=== PATIENT | female | born 1955 | race Hispanic/Latino ===

== ENCOUNTER 2022-11-20 12:00 | Day surgery (SDC) | payer OTHER ==
[2022-11-15 15:25] LABS: Protime INR 1.03
[2022-11-15 15:26] LABS: Absolute Lymphocytes (CBC) 1.7 K/uL (0.7-4.9); Hematocrit 38.9 % (36.0-45.0); Lymphocytes % 23.5 % (15.3-44.8); MCV 85.7 fL (80-100); MPV 8.8 fL (7.6-11.3); RBC Red Blood Cell Count 4.55 M/uL (3.86-4.86)
--- NOTE | 2022-11-15 16:08 | RAD REPORT ---
EXAM DESCRIPTION: RAD - Chest Pa And Lat (2 Views) - 11/15/2022 3:47 pm CLINICAL HISTORY: Pre op pending heart catheterization COMPARISON: No comparisons FINDINGS: Lines: None. Lungs: No evidence of edema or pneumonia. Pleural: No significant pleural effusions or pneumothorax. Cardiac: Cardiomegaly. Mediastinum: Within normal limits. Bones: No acute fractures. Other: None IMPRESSION: No acute cardiopulmonary disease.
--- NOTE | 2022-11-16 10:49 | EKG ---
Test Date: 2022-11-15 Test Time: 14:56:00 Car Detailer: VIRAJ MEASUREMENT RESULTS: Intervals: Rate: 68 VT: 196 QRSD: 74 QT: 402 QTc: [address]: P: 39 VT: 196 QRS: 37 T: 39 INTERPRETIVE STATEMENTS: Normal sinus rhythm Cannot rule out Anterior infarct, age undetermined Abnormal ECG Compared to ECG 08/15/2022 10:36:34 No significant changes Electronically Signed On 11-16-22 10:46:40 [employer] by Emiliano Espinal
[2022-11-20] MEDS ORDERED: NA CHLORIDE 0.9% 500 ML ONE (12:12)
[2022-11-20] MEDS ORDERED: HEPA 1000U/500MLS 2,000 UNIT/1,000 ML BAG IV ONE (13:23)
[2022-11-20] MEDS ORDERED: HEPARIN 5000 UNIT/ML 1 ML VIAL ONE (13:24)
[2022-11-20] MEDS ORDERED: VERAPAMIL HCL 10 MG/4 ML VIAL IV ONE (13:24)
[2022-11-20] MEDS ORDERED: FENTANYL CITR 100 MCG/2 ML ONE (13:24)
[2022-11-20] MEDS ORDERED: MIDAZOLAM HCL 2 MG/2 ML INJ ONE (13:24)
[2022-11-20] MEDS ORDERED: CLOPIDOGREL 75 MG TABLET ONE (13:24)
[2022-11-20] MEDS ORDERED: ASPIRIN 325 MG TAB ONE (13:24)
[2022-11-20] MEDS ORDERED: HEPARIN 10,000 UNIT/10 ML VIAL IV ONE (13:24)
[2022-11-20] MEDS ORDERED: TICAGRELOR 90 MG TABLET PO ONE (13:25)
[2022-11-20] MEDS ORDERED: ATROPINE SULF 1 MG/10 ML SYR IV ONE (13:25)
[2022-11-20 15:54] VITALS: BP 120/64; O2SAT 98
--- NOTE | 2022-11-20 19:32 | OP ---
Date of Procedure: 11/20/2022 Surgeon: GIANNI LONGORIA Procedures Performed: 1.Selective coronary angiogram. 2.Left heart catheterization. Indication: Chest pain with abnormal stress test. Access: Right radial artery 6-Niuean closed with TR band. Complications: None. Estimated Blood Loss: Bleeding less than 10 mL. Anesthesia: Total sedation time was 15 minutes, used fentanyl and Versed. Description Of Procedure: After risks, benefits, and alternatives were explained, the patient agreed to procedure and signed informed consent. The patient was brought to the cardiac catheterization la boratory and prepped and draped in usual sterile fashion. Then, I accessed right radial artery using pediatric micropuncture kit, a 6-Niuean Slender sheath and took a 5-Niuean Hurley 4 catheter into the aortic root, engaged left main and then right coronary artery, took standard views and the catheter was pushed over the wire into the LV. LVEDP was measured and pullback did not record any gradient. Then removed the catheter and sheath, placed TR band with good hemostasis. Findings: 1.Left main: Large and normal. 2.LAD: Large vessel. Proximal segment is normal. Mid segment has diffuse long 40% disease and the n distally has focal 40% disease. Diagonal branches appear normal. 3.Left circumflex: Moderate-sized vessel, normal and normal OM branches and it has a non dominant c irculation. 4.RCA: Large and dominant with proximal 20% stenosis, otherwise no abnormalities. 5.Normal LVEDP between 5 and 10 mmHg. Conclusion: 1.Moderate nonobstructive coronary artery disease. 2.Normal left ventricular end-diastolic pressure. Recommendations: Cardiac risk factor modification, medical management, and close followup. SR/MODL Voice ID: [id number] Report ID: [id number]
== END 2022-11-20 16:12 | disposition home or self-care (01) ==
LOC: CCL 12:00
PROVIDERS: ATTEND Internal Medicine
DX: I25.10 Atherosclerotic heart disease of native coronary artery without angina pectoris (principal); I11.0 Hypertensive heart disease with heart failure; I50.30 Unspecified diastolic (congestive) heart failure; E78.5 Hyperlipidemia, unspecified; E11.9 Type 2 diabetes mellitus without complications; Z79.899 Other long term (current) drug therapy; Z88.1 Allergy status to other antibiotic agents
CPT/HCPCS: 93005; 85025; 80048; 36415; 85610; 82947; 85730; 71046; 93458; 76937; C1893; Q9966; J1644 ×2; J2250; J3010; J7040; J0461